=== PATIENT | male | born 1995 ===

== ENCOUNTER 2020-12-29 09:22 | Emergency (ER) | payer OTHER ==
[~2020-12-29] VITALS: Ht 170.2 cm; Wt 104.3 kg
[2020-12-29] MEDS ORDERED: KETO10TA2 PO (12:14)
== END 2020-12-29 12:36 | disposition home or self-care (01) ==
LOC: ER 09:22
DX: S92.354A Nondisplaced fracture of fifth metatarsal bone, right foot, initial encounter for closed fracture (principal); W01.0XXA Fall on same level from slipping, tripping and stumbling without subsequent striking against object, initial encounter; Y93.01 Activity, walking, marching and hiking; Y92.89 Other specified places as the place of occurrence of the external cause; Y99.8 Other external cause status